=== PATIENT | male | born 1995 | race Caucasian/White ===

== ENCOUNTER 2016-12-13 07:48 | Day surgery (SDC) | payer SELFPAY ==
[2016-12-07 13:53] VITALS: BMI 27.7
[2016-12-13] MEDS ORDERED: SODIUM CHLORIDE 0.9% P/F 10 ML VIAL IJ ONE (08:34)
[2016-12-13] MEDS ORDERED: ceFAZolin SODIUM 1 GM VIAL ONE (08:34)
[2016-12-13] MEDS ORDERED: PROPOFOL 20 ML ONE ×3 (08:35→10:32)
[2016-12-13] MEDS ORDERED: MIDAZOLAM HCL 2 MG/2 ML SINGLE DOSE VIAL ONE (08:35)
[2016-12-13] MEDS ORDERED: BACITRACIN 3.5 GM OPTHALMIC OINT TUBE ONE (09:41)
[2016-12-13] MEDS ORDERED: TETRACAINE 0.5% OPHTH SOLN 2 ML BOTTLE ONE (09:41)
[2016-12-13] MEDS ORDERED: LIDOCAINE 1%-EPI 1:100,000 30 ML MDV IJ ONE (09:41)
[2016-12-13] MEDS ORDERED: ACETAMINOPHEN 500 MG TABLET (FP) PO PRN (10:45)
[2016-12-13] MEDS ORDERED: ONDANSETRON 4 MG/2 ML VIAL ONE (10:48)
[2016-12-13 11:22] VITALS: TEMP 97.7
[2016-12-13] MEDS ORDERED: ONDANSETRON 4 MG/2 ML VIAL IVPUSH PRN (11:26)
[2016-12-13] MEDS ORDERED: oxyCODONE HCL 5 MG TABLET PO PRN (11:27)
--- NOTE | 2016-12-13 11:33 | OP ---
DATE OF OPERATION: 12/13/2016 PREOPERATIVE DIAGNOSIS: Ptosis left upper lid. POSTOPERATIVE DIAGNOSIS: Ptosis left upper lid. PROCEDURE: Conjunctival and Paredes resection left upper lid. SURGEON: Milagros Cruz MD ANESTHESIA: Local with sedation. COMPLICATIONS: None. ESTIMATED BLOOD LOSS: 1 mL or less. OPERATIVE REPORT: The patient was brought to the operating room and placed on the operating room table. was placed in both eyes. The patient was given intravenous sedation. A time-out was performed. Alcohol prep was performed of the upper lid and 2% Xylocaine and 1:100,000 epinephrine was injected along the orbital roof after aspiration approximately 1.5 cm back. For frontal nerve block 1.5 mL was injected. Then 0.5 mL was injected subcutaneously in the central left upper lid. The patient was gently massaged and then prepped and draped in the usual sterile fashion. A 4-0 silk was passed through the central lid margin. The lid was everted over a Desmarres retractor. Then 4.5 mm above the central tarsus a jay was placed, measured with a caliber, and checked with a ruler. One was placed nasally and temporally. Forceps was used to gently elevate the conjunctivae off of the underlying levator taking the Paredes with it. Then in those 3 oro, a 6-0 silk suture was passed through each of the 3 conjunctival oro. The suture was then used in a 4-prong fashion to elevate the conjunctival and Paredes muscle and then a Putterman clamp was used to incorporate the conjunctivae and Paredes above the tarsus incorporating approximately 9 mm of conjunctivae and Paredes muscle centrally located over the tarsus. The clamp was distracted inferiorly while the skin was distracted superiorly to demonstrate no adhesion of the anterior lamella. Then a double armed 5-0 plain was passed temporal to nasal 1.5 mm away from the clamp. The incorporated tissue was then excised being careful not to cut the suture using a 15 blade, and it was removed from the field. A tiny bit of cautery was used nasally for hemostasis and then the 5-0 plain was run in a continuous fashion from nasal to temporal and then each arm was passed through the conjunctivae and then through the wound exiting on the temporal external aspect of the upper eyelid to avoid any nonirritation. The lid was everted to demonstrate there was good closure of the wound, and the suture was then tied on the external surface. The traction suture was removed. Antibiotic irrigation was used throughout the case. There was external hemostasis. Bacitracin was placed in the eye and on the suture, and the patient was taken to the recovery room in stable condition. MILAGROS CRUZ M.D. [id number]
[2016-12-13 11:53] VITALS: PULSE 71
[2016-12-13 12:19] VITALS: BP 133/66
--- NOTE | 2016-12-15 14:27 | PATH ---
Surgical Pathology Report Patient Name: VERONIQUE BLACK [facility]. Rec. #: [id number] /Age/Gender: 1995 (Age: 21) / M Account: [id number] Location: [facility] Taken: 12/13/2016 Received: 12/13/2016 Reported: 12/15/2016 Physicians: Greg Mccormick Specimen(s) Received MUELLERS MUSCLE LEFT UPPER EYELID Clinical History Ptosis left upper eyelid Final Diagnosis CULP'S MUSCLE LEFT UPPER EYELID, PTOSIS REPAIR: CONJUNCTIVA, MODERATELY INFLAMED WITH UNDERLYING MUSCLE TISSUE. Electronically Signed Chrissy Ceja M.D. Gross Description Received in formalin, labeled "Culp's muscle left upper eyelid," is a 1.5 x 0.3 x 0.1 cm faust-brown, irregular portion of soft tissue. The specimen is submitted in toto in one cassette. 12/14/201612/14/2016
== END 2016-12-13 12:15 | disposition home or self-care (01) ==
LOC: FASU 07:48
PROVIDERS: ATTEND Ophthalmology
PROC: 08BP0ZZ Excision of Left Upper Eyelid, Open Approach (ICD-10-PCS; principal; 2016-12-13 10:24)
DX: H02.402 Unspecified ptosis of left eyelid (principal)
CPT/HCPCS: 88304-TC; 94760